=== PATIENT | female | born 1955 | race Caucasian/White ===

== ENCOUNTER → 2016-12-25 | Outpatient (CLI) | payer OTHER ==
[~2016-12-25] MED LIST: ASPI325T39 PO; BUPR100T8 PO; DOXY100C2 PO; FURO20TA PO; IBUP-1050 PO; LOSA1TAB PO; OXYC-57 PO; POTA10CA28 PO
[2016-12-25 17:06] LABS: BLOOD UREA NITROGEN 16 mg/dl (7-18); BUN/CREATININE RATIO 19.5 (10-20); CALCIUM 9.3 mg/dl (8.5-10.1); CARBON DIOXIDE 28 mmol/L (21-32); CHLORIDE 104 mmol/L (98-107); CREATININE 0.84 mg/dl (0.60-1.20); GLUCOSE 164 mg/dl (70-99); POTASSIUM 3.9 mmol/L (3.5-5.1); SODIUM 141 mmol/L (136-145)
[2016-12-26 05:51] LABS: ESTIMATED AVERAGE GLUCOSE 203 mg/dl; HA1C FLAG Normal (Normal)
== END | disposition home or self-care (01) ==
LOC: C.LAB1850 15:54
PROVIDERS: ATTEND Internal Medicine
DX: E11.65 Type 2 diabetes mellitus with hyperglycemia (principal)

== ENCOUNTER → 2017-03-18 | Outpatient (CLI) | payer OTHER ==
[~2017-03-18] VITALS: Ht 157.5 cm; Wt 119.3 kg
[2017-03-18 16:55] VITALS: BP 159/93; PULSE 92; Ht 157.5 cm; Wt 119.3 kg
== END | disposition home or self-care (01) ==
LOC: C.NEUR 14:30
PROVIDERS: ATTEND Internal Medicine Pulmonary Disease
DX: R06.83 Snoring (principal); R53.83 Other fatigue; E66.01 Morbid (severe) obesity due to excess calories

== ENCOUNTER → 2017-04-11 | Outpatient (CLI) | payer OTHER ==
--- NOTE | 2017-04-12 05:58 | SPLIT NIGHT TECHNICIAN REPORT ---
[facility] Split Night Polysomnogram - Dessert Cup Machine Feeder Report Study date: 04/11/2017 Referring Physician: Hany Campos M.D. Name: VANE PROCTOR Dessert Cup Machine Feeder: ISAIAH Palomino. Date of : 1955 Height: 62 years, Height 5' 2" Sex: Female Weight: 263 lbs Age: 62 Neck Circum: 18inches BMI: Medications: 48.1 Losartan HCTZ 100-12.5mg, Hydralazine HCl 50mg, Metformin HCl ER 500mg, Ventolin HFA 108mcg/act, Victoza 18mg/3ml, Vit B12, Vit D Vit D3 Patient History Study started on room air with no ETCO2 monitoring in room 38. 62 yr old female here tonight for a diagnostic psg. She complains of daytime sleepiness and loud snoring. ESS=8/24. Neck circ=18inches. Parameters Monitored NPSG: E1-M2, E2-M1, Fp1-M2, Fp2-M1, F3-M2, F4-M2, F4-M1, C3-M2, C4-M2, C4-M1, O1-M2, O2-M2, O2-M1, T3-M2, T4-M1, P3-M2, P4-M1, CHIN1, CHIN2, HR, EKG, Legs, PFLOW, SNOR, FLOW, CFLOW, Tidal Volume, THOR, ABDO, SpO2, PLTH, CPRESS, ETCO2 Wave, ETCO2, pH SLEEP SUMMARY DATA DIAGNOSTIC TREATMENT Lights Out: 9:52:35 PM 12:45:05 AM Lights On: 12:30:05 AM 5:34:35 AM Total Recording Time (TRT): 157.5 min. 289.5 min. Total Sleep Time (TST): 129.5 min. 238.0 min. NREM Time: 129.5 min. 155.5 min. REM Time: 0.0 min. 82.5 min. Sleep Period Time (SPT): 150.0 min. 272.0 min. Sleep Efficiency (SE): 82 % 82 % Sleep Latency: 7.5 min. 17.5 min. Arousal Index: 7.4 3.0 PAP Treatment Levels: 4, 6, 7, 8, 9, 10 * Optimal Pressure(s) SLEEP STAGING DATA DIAGNOSTIC TREATMENT Duration (min) TST % Duration (min) TST % Stage Wake: 28.0 min. -- 51.5 min. -- WASO: 20.5 min. -- 34.0 min. -- NREM: 129.5 min. 100 % 155.5 min. 65 % Stage N1: 8.5 min. 7 % 12.5 min. 5 % Stage N2: 106.0 min. 82 % 73.0 min. 31 % Stage N3: 15.0 min. 12 % 70.0 min. 29 % REM: 0.0 min. 0 % 82.5 min. 35 % POSITIONAL DATA Event Count Index Event Count Index Supine: N/A N/A N/A N/A Supine NREM: N/A N/A N/A N/A Supine REM: N/A N/A N/A N/A Non-Supine: 75 34.7 6 1.5 Non-Supine NREM: 75 34.7 1 0.4 Non-Supine REM: N/A N/A 5 3.6 AROUSAL SUMMARY DATA: Event Count Index Event Count Index Apnea Arousals: 0 1.9 0 0.3 Hypopnea Arousals: 5 2.3 1 0.3 Snore Arousals: 0 0.0 4 1.0 PLM Arousals: 7 3.2 1 0.3 Non-Specific Arousals: 5 2.3 5 1.3 Total Arousals: 16 7.4 12 3.0 MYOCLONUS (PLM) Event Count Index Event Count Index PLM: 177 82.0 3 0.8 PLM AROUSAL: 7 3.2 1 0.3 PLM W/O AROUSAL 177 82.0 2 0.5 PLM W/RESP EVENT 25 0.0 0 0.0 MYOCLONUS (PLM) Event Count Index Event Count Index LM: 0 11.6 36 9.1 LM AROUSAL: 0 0.0 2 0.5 LM W/O AROUSAL LM W/RESP EVENT LM NON SPECIFIC 159 73.7 35 8.8 HEART RATE DATA DIAGNOSTIC TREATMENT Sleep (bpm): 79 74 REM (bpm): N/A 91 NREM (bpm): 89 92 Tachycardia Count: 0 0 Tachycardia Duration: 0.00 0 Bradycardia Count: 0 0 Bradycardia Duration: 0.00 0 DIAGNOSTIC PORTION TREATMENT PORTION RESPIRATORY DATA Event Count Index Event Count Index AHI: -- 34.7 -- 1.5 RDI: -- 34.7 -- 2 Obstructive Apnea: 4 1.9 0 0.0 Central Apnea: 0 0.0 1 0.3 Mixed Apnea: 0 0.0 0 0.0 Hypopnea: 71 32.9 5 1.3 RERA: 0 0.0 0 0.0 Total Apneas: 4 1.9 1 0.3 RESPIRATORY DATA REM NREM SLEEP REM NREM SLEEP Supine Position: Obstructive Apneas: N/A N/A N/A N/A N/A N/A Central Apneas: N/A N/A N/A N/A N/A N/A Mixed Apneas: N/A N/A N/A N/A N/A N/A Hypopneas: N/A N/A N/A N/A N/A N/A RERA N/A N/A N/A N/A N/A N/A Total Supine Events: N/A N/A N/A N/A N/A N/A Supine AHI: N/A N/A N/A N/A N/A N/A Supine RDI: N/A N/A N/A N/A N/A N/A REM NREM SLEEP REM NREM SLEEP Non-Supine Position: Obstructive Apneas: N/A 4 4 0 0 0 Central Apneas: N/A 0 0 1 0 1 Mixed Apneas: N/A 0 0 0 0 0 Hypopneas: N/A 71 71 4 1 5 RERA N/A 0 0 0 0 0 Total Supine Events: N/A 75 75 5 1 6 Supine AHI: N/A 34.7 34.7 3.6 0.4 1.5 Supine RDI: N/A 34.7 34.7 3.6 0.4 1.5 OXYGEN DESTAURATION DATA: Event Count Index Event Count Index REM Desaturations: N/A N/A 4 2.9 NREM Desaturations: 125 57.9 0 0.0 SNORE DATA DIAGNOSTIC TREATMENT Snore Time: 29.7 1:02:35 AM Snore TST%: 16 5 Snore Arousal Count: 0 4 Snore Arousal Index: 0.0 1.0 Desaturation Event Summary: Minimum %SpO2 Event Count Mean/Min/Max Duration(sec.) Desaturation Index % Time In Bed > 90 118 23.0 / 5.0 / 60.0 23.5 69.8 86 - 90 83 22.0 / 8.0 / 60.0 43.7 26.4 81 - 85 6 26.6 / 9.8 / 44.3 22.8 3.7 76 - 80 0 N/A 0.0 0.1 71 - 75 0 N/A 0.0 0.0 66 - 70 0 N/A 0.0 0.0 61 - 65 0 N/A 0.0 0.0 56 - 60 0 N/A 0.0 0.0 51 - 55 0 N/A 0.0 0.0 < 50 0 N/A 0.0 0.0 OXYGEN SATURATION DATA DIAGNOSTIC TREATMENT SpO2 Mean Sleep: 89 % 92 % SpO2 Mean REM: N/A % 91 % SpO2 Mean NREM: 89 % 92 % SpO2 Minimum Sleep: 80 % 80 % SpO2 Minimum REM: N/A % 80 % SpO2 Minimum NREM: 80 % 87 % Time Below 90% (TST): 65.5 16.9 Time Below 88% (TST): 25.4 11.8 Total REM NREM Awake <50% 0.0 min. 0.0 min. 0.0 min. 0.0 min. 51 - 60% 0.0 min. 0.0 min. 0.0 min. 0.0 min. 61 - 70% 0.0 min. 0.0 min. 0.0 min. 0.0 min. 71 - 80% 0.6 min. 0.2 min. 0.1 min. 0.2 min. 81 - 90% 129.8 min. 16.3 min. 104.2 min. 9.3 min. 91 - 100% 301.1 min. 66.1 min. 180.6 min. 54.4 min. Average 91 91 91 92 Minimum SpO2 79 80 80 79 Desaturation Event Index 18.8 2.9 26.3 8.3 # Desat. Events below 89% 124 4 114 6 Time(%) with Saturation below 89% 13.4 2.9 10.0 0.5 Time(min.) with Saturation below 89% 57.7 12.4 42.9 2.3 Recording Dessert Cup Machine Feeder Comments: Mrs. Proctor slept in the right, left and supine positions. No cardiac arrhythmia noted. Some leg movements noted. No bruxism noted. Snoring was noted and scored as a 5 on a scale of 1 through 5. (0=no snoring, 5=snoring loud enough to be heard through a closed door or down the [address] way) At 12:45am she had met specific Split-Night criteria during the diagnostic portion of this study. CPAP was initiated at +4 CMH2O and up-titrated to an optimal level of +10 CMH2O, which nearly eliminated all respiratory events and snoring. A small Quattro air full facemask by [employer] was used during titration. She awoke to use the restroom one time during the night. She stated andreina she slept a little worse than when at home. The final report will be interpreted and signed by a sleep physician. The completed physician report will then be placed in the patient medical record. Therapy Event: Therapy (cm H20) 0 4 6 7 8 9 10 Total Time at Pressure (min.) 157.5 34.4 6.3 11.2 16.5 23.8 197.3 TST at Pressure (min.) 129.5 8.0 5.7 11.2 16.5 21.8 174.8 # Periods 1 1 1 1 1 1 1 Sleep Onset (min.) 7.5 17.5 0.6 0.0 0.0 0.0 0.0 REM Onset (min.) N/A N/A N/A N/A 6.0 0.0 49.8 Sleep Efficiency % 82 23 91 100 100 91 88 Wakefulness (%) 17.8 76.8 9.0 0.0 0.0 8.4 11.4 Wakefulness (min.) 28.0 26.4 0.6 0.0 0.0 2.0 22.5 NREM 1 (%) 5.4 13.1 39.8 0.0 0.0 10.5 1.5 NREM 1 (min.) 8.5 4.5 2.5 0.0 0.0 2.5 3.0 NREM 2 (%) 67.3 10.2 51.2 100.0 6.3 68.1 19.1 NREM 2 (min.) 106.0 3.5 3.2 11.2 1.0 16.2 37.8 NREM 3 (%) 9.5 0.0 0.0 0.0 30.4 0.0 32.9 NREM 3 (min.) 15.0 0.0 0.0 0.0 5.0 0.0 65.0 REM (%) 0.0 0.0 0.0 0.0 63.3 13.0 35.0 REM (min.) 0.0 0.0 0.0 0.0 10.4 3.1 69.0 # Arousals 16 3 0 0 0 4 5 Arousal Index 7.4 22.5 0.0 0.0 0.0 11.0 1.7 # Snore 1,088 45 46 117 85 99 23 Snore Index 504.1 337.5 483.0 624.4 309.9 272.3 7.9 AHI 34.7 0.0 0.0 0.0 14.6 2.8 0.3 AHI Supine N/A N/A N/A N/A N/A N/A N/A AHI Non-Supine 34.7 0.0 0.0 0.0 14.6 2.8 0.3 NREM AHI 34.7 0.0 0.0 0.0 0.0 0.0 0.6 REM AHI N/A N/A N/A N/A 23.1 19.4 0.0 RDI 34.7 0.0 0.0 0.0 14.6 2.8 0.3 # Obstructive 4 0 0 0 0 0 0 # Central Ap 0 0 0 0 1 0 0 # Mixed 0 0 0 0 0 0 0 # Hypopneas 71 0 0 0 3 1 1 RERAS 0 0 0 0 0 0 0 Total Respiratory Events 75 0 0 0 4 1 1 Time Below SpO2 89.00% (min.) 42.6 0.2 0.0 0.1 9.3 3.1 0.0 Mean NREM SpO2 (%) 89 91 91 91 90 93 93 Mean REM SpO2 (%) N/A N/A N/A N/A 86 83 92 Mean Sleep SpO2 (%) 89 91 91 91 88 91 93 Min NREM SpO2 (%) 80 87 89 88 89 91 91 Min REM SpO2 (%) N/A N/A N/A N/A 81 80 89 Position Supine (min.) 0.0 0.0 0.0 0.0 0.0 0.0 0.0 Position Non-supine (min.) 129.5 8.0 5.7 11.2 16.5 21.8 174.8 LM Index Sleep 93.6 0.0 0.0 10.7 10.9 13.8 10.0 LM Index NREM 93.6 0.0 0.0 10.7 29.8 12.8 11.3 LM Index REM N/A N/A N/A N/A 0.0 19.4 7.8 Mean Heart Rate (bpm) 79 78 77 77 80 78 73 Min Heart Rate (bpm) 68 73 69 71 72 67 61
--- NOTE | 2017-04-16 17:15 | POLYSOMNOGRAPH REPORT ---
CLINICAL DATA: A 62-year-old female referred by myself, Dr. Consuelo Hernandez, and Dr. Eastman with history of snoring, obesity, daytime fatigue and possible sleep apnea. She does awaken herself at times snoring and gasping for air. Her does report loud snoring. This was a split night study. Her [place] Sleepiness Score was 8/24. SLEEP ARCHITECTURE: For the diagnostic portion of the study, total sleep period was 150 minutes. Total sleep time was 129.5 minutes, all non-REM sleep. Sleep latency was 7.5 minutes. Sleep efficiency was 82%. Arousal index was 7.4. Sleep consisted of stage N1 7%, N2 82%, N3 12%. For the treatment portion of the study, total sleep period was 272 minutes. Total sleep time was 238 minutes divided between 155.5 minutes of non-REM sleep and 82.5 minutes of REM sleep. Sleep latency was 17.5 minutes. Sleep efficiency was 82%. Arousal index was 3. Sleep consisted of stage N1 5%, N2 31%, N3 29, REM 35%. AROUSAL DATA: Prior to treatment, 16 arousals were recorded for an index of 7.4 per hour. During treatment, 12 arousals recorded for an index of 3 per hour. PERIODIC LIMB MOVEMENTS DATA: Prior to treatment, 177 limb movements during sleep were noted for an index of 82 per hour. During treatment, 36 limb movements during sleep were noted for an index of 9.1 per hour. EKG: Heart rates ranged from 74-91 beats per minute. No arrhythmias were noted. RESPIRATORY DATA: Prior to treatment, severe sleep apnea was documented. The diagnostic AHI was 34.7. There were 4 obstructive apneic episodes and 71 hypopneic episodes. During treatment, the mean AHI was 1.5. There was 1 central apneic episode and 5 hypopneic episodes recorded. OXIMETRY DATA: Nocturnal hypoxemia was seen prior to treatment. Oxygen chad was 80% during non-REM sleep prior to treatment. Mean saturation for the treatment was 92%. MARKET PRESIDENT'S COMMENTS AND TREATMENT SUMMARY: The patient slept in the right, left, and supine positions. Snoring was severe, rated 5 on a scale of 1-5. At 12:45 a.m., she met split night criteria. We used a small Quattro Air full face mask from [employer]. She was started on CPAP. She was titrated up to an optimal pressure setting of 10 cm water pressure. At final pressure setting, she slept for 174.8 minutes with an AHI of 0.3. IMPRESSION: Severe sleep apnea/hypopnea with diagnostic apnea-hypopnea index of 34.7 prior to treatment with nocturnal hypoxemia corrected with CPAP 10 cm of water pressure, small Quattro Air full face mask from [employer]. RECOMMENDATIONS: The patient will be started on the above noted treatment regimen and seen back in followup within 90 days to document efficacy and compliance. CHRISTY
== END | disposition home or self-care (01) ==
LOC: C.NEUR 21:00
PROVIDERS: ATTEND Internal Medicine Pulmonary Disease
DX: R53.83 Other fatigue (principal); E66.01 Morbid (severe) obesity due to excess calories; R06.83 Snoring; G47.30 Sleep apnea, unspecified

== ENCOUNTER → 2017-04-23 | Outpatient (CLI) | payer OTHER ==
--- NOTE | 2017-04-28 10:15 | MAMMOGRAPHY REPORT ---
BILATERAL DIGITAL SCREENING MAMMOGRAM WITH CAD: 04/23/2017 CLINICAL HISTORY: Routine screening. Patient has no complaints. TECHNIQUE: Current study was also evaluated with a Computer Aided Detection (CAD) system. Bilateral CC and MLO views were obtained. COMPARISON: Comparison is made to exams dated: 03/31/2015 mammogram, 04/01/2016 mammogram, 03/23/2014 [facility], 04/30/2012 mammogram, 01/29/2011 mammogram, and 05/06/2008 mammogra m. BREAST COMPOSITION: There are scattered areas of fibroglandular density in both breasts. FINDINGS: No suspicious masses, calcifications, or areas of architectural distortion are noted in ei ther breast. There has been no significant interval change compared to prior exams. Prominent bilate ral axillary lymph nodes are stable dating back to at least the 2010 exam. Bilateral benign-appearin g calcifications are not significantly changed compared to prior exams. IMPRESSION: ACR BI-RADS CATEGORY 2: BENIGN There is no mammographic evidence of malignancy. A 1 year screening mammogram is recommended. The pa tient will receive written notification of the results. Approximately 10% of breast cancers are not detected with mammography. A negative mammographic report should not delay biopsy if a clinically suggestive mass is present. Demetra Fitch M.D. ah/:04/23/2017 15:32:40 Refrigeration Technician: Pallavi DE LUNA(Brian)(M), [facility] letter sent: Normal 1/2 BI-RADS Code: ACR BI-RADS Category 2: Benign
== END | disposition home or self-care (01) ==
LOC: C.MAMM 15:03
PROVIDERS: ATTEND Internal Medicine
DX: Z12.31 Encounter for screening mammogram for malignant neoplasm of breast (principal)

== ENCOUNTER → 2017-05-14 | Outpatient (CLI) | payer OTHER ==
[2017-05-14 09:55] LABS: HEMATOCRIT 37.7 % (37-47)
[2017-05-14 10:12] LABS: ESTIMATED AVERAGE GLUCOSE 137 mg/dl; HA1C FLAG Normal (Normal)
[2017-05-14 10:21] LABS: CALCIUM 9.3 mg/dl (8.5-10.1)
[2017-05-14 10:30] LABS: ALKALINE PHOSPHATASE 73 U/L (45-117); ALT/SGPT 19 U/L (12-78); AST/SGOT 12 U/L (15-37); BLOOD UREA NITROGEN 20 mg/dl (7-18); BUN/CREATININE RATIO 20.6 (10-20); CARBON DIOXIDE 26 mmol/L (21-32); CHLORIDE 105 mmol/L (98-107); CHOLESTEROL 184 mg/dl (0-200); CHOLESTEROL/HDL RATIO 3.6; CREATININE 0.97 mg/dl (0.60-1.20); GLUCOSE 132 mg/dl (70-99); HDL CHOLESTEROL 51 mg/dl; LDL CHOLESTEROL CALCULATED 96 mg/dl; POTASSIUM 3.7 mmol/L (3.5-5.1); SODIUM 142 mmol/L (136-145); TRIGLYCERIDES 187 mg/dl (0-150); VERY LOW DENSITY LIPOPROT CALC 37 mg/dl
[2017-05-14 10:31] LABS: HEPATITIS B AB NEG
== END | disposition home or self-care (01) ==
LOC: C.LAB1850 09:08
PROVIDERS: ATTEND Internal Medicine Endocrinology, Diabetes & Metabolism
DX: E11.65 Type 2 diabetes mellitus with hyperglycemia (principal)

== ENCOUNTER → 2017-12-09 | Outpatient (CLI) | payer OTHER ==
--- NOTE | 2017-12-09 12:51 | DIAGNOSTIC IMAGING REPORT ---
PELVIS 1 OR 2 VIEW ROUTINE CLINICAL HISTORY: Pelvic pain status post trauma COMPARISON STUDY: 03/03/2013 FINDINGS: There are advanced degenerative changes present within the visualized portions of the lower lumbar spine. No acute pelvic fractures are visualized. Corticated densities are again visualized adjacent to each greater trochanter. There is no SI joint diastases. There is no symphysis diastases. There is a nonspecific 12 mm left-sided pelvic calcification possibly representing calcification within a degenerating fibroid. IMPRESSION: No acute fractures or dislocations identified. Electronically signed by: Marlo Stevens M.D. 12/09/2017 12:49 PM Dictated Date/Time: 12/09/2017 12:48 PM
--- NOTE | 2017-12-09 12:53 | DIAGNOSTIC IMAGING REPORT ---
RIGHT RIBS INCLUDING PA ERECT CHEST CLINICAL HISTORY: Right-sided rib pain status post trauma COMPARISON STUDY: No previous studies for comparison. FINDINGS: The erect chest reveals no pneumothorax. There is no focal pulmonary consolidation. Degenerative changes are present within the shoulders and AC joints. There is probable right-sided calcific tendinitis. Deformities of the right sixth and seventh ribs are felt to be old. No acute fractures are visualized. IMPRESSION: 1. Minor deformities of the right sixth and seventh ribs which are felt to be old. 2. No acute fractures. No evidence of pneumothorax. Electronically signed by: Marlo Stevens M.D. 12/09/2017 12:52 PM Dictated Date/Time: 12/09/2017 12:50 PM
--- NOTE | 2017-12-09 12:55 | DIAGNOSTIC IMAGING REPORT ---
THORACIC SPINE 3 VIEWS ROUTINE, L-SPINE MIN 4 VIEWS ROUTINE HISTORY: 62 years-old Female THORACIC BACK PAIN acute back pain status post fall COMPARISON: Chest radiographs 02/23/2016 TECHNIQUE: 3 views of the thoracic spine and 5 views of the lumbar spine FINDINGS: THORACIC: No acute fracture or subluxation. Multilevel anterior endplate bridging osteophytosis is noted along with multilevel intervertebral disc space narrowing. Soft tissues and imaged lung whaley appear unremarkable. LUMBAR: Mild convex right curvature of the lumbar spine. No acute fracture or subluxation identified. Advanced multilevel intervertebral disc space narrowing with facet arthropathy and endplate spurring. There is relative preservation of the L2-L3 disc space. No spondylolysis or spondylolisthesis. Surgical clips are seen within the right upper abdomen suggesting prior cholecystectomy. Moderate stool wire above the cecum and ascending colon. IMPRESSION: 1. No acute fracture or subluxation of the thoracic or lumbar spine. 2. Multilevel discogenic degenerative changes, endplate spurring and facet arthropathy as above, greatest within the lumbar spine. The above report was generated using voice recognition software. It may contain grammatical, syntax or spelling errors. Electronically signed by: Benigno Dobson M.D. 12/09/2017 12:53 PM Dictated Date/Time: 12/09/2017 12:50 PM
== END | disposition home or self-care (01) ==
LOC: C.RAD1850 12:09
PROVIDERS: ATTEND Internal Medicine
DX: M54.6 Pain in thoracic spine (principal); W19.XXXA Unspecified fall, initial encounter; R07.81 Pleurodynia; M51.36 Other intervertebral disc degeneration, lumbar region; M12.88 Other specific arthropathies, not elsewhere classified, other specified site; M25.78 Osteophyte, vertebrae

== ENCOUNTER → 2017-12-09 | Outpatient (CLI) | payer OTHER ==
[2017-12-09 10:03] LABS: ALBUMIN 3.2 gm/dl (3.4-5.0); ALT/SGPT 26 U/L (12-78); BLOOD UREA NITROGEN 21 mg/dl (7-18); CALCIUM 9.5 mg/dl (8.5-10.1); CARBON DIOXIDE 27 mmol/L (21-32); CREATININE 0.88 mg/dl (0.60-1.20); GLUCOSE 176 mg/dl (70-99); POTASSIUM 3.8 mmol/L (3.5-5.1); SODIUM 139 mmol/L (136-145)
[2017-12-09 10:13] LABS: ALKALINE PHOSPHATASE 83 U/L (45-117); AST/SGOT 19 U/L (15-37)
== END | disposition home or self-care (01) ==
LOC: C.LAB1850 08:01
PROVIDERS: ATTEND Internal Medicine
DX: E11.65 Type 2 diabetes mellitus with hyperglycemia (principal); E78.5 Hyperlipidemia, unspecified; E55.9 Vitamin D deficiency, unspecified; Z11.59 Encounter for screening for other viral diseases; R82.90 Unspecified abnormal findings in urine

== ENCOUNTER → 2017-12-19 | Outpatient (CLI) | payer OTHER | END | disposition home or self-care (01) | LOC: C.PAPS 11:45 | PROVIDERS: ATTEND Physician Assistant | DX: Z01.419 Encounter for gynecological examination (general) (routine) without abnormal findings (principal) ==

== ENCOUNTER → 2018-03-10 | Outpatient (CLI) | payer OTHER ==
--- NOTE | 2018-03-10 07:53 | DIAGNOSTIC IMAGING REPORT ---
SOFT TISS HEAD/NECK-THYROID CLINICAL HISTORY: 63 years-old Female presenting with M54.2 Neck [id number]. TECHNIQUE: Real-time grayscale and color Doppler ultrasound imaging of the thyroid and base of the neck was performed. COMPARISON: None. FINDINGS: Right lobe: Heterogeneous echotexture secondary to the presence of multiple nodules. The right lobe of the thyroid measures 5.2 x 2.1 x 1.9 cm. No parenchymal hyperemia. Index nodule(s) enumerated below: 1. Upper pole well-defined hypoechoic 1.1 x 0.7 x 0.9 cm nodule (intermediate suspicion). 2. Lower pole well-defined heterogeneously hyperechoic to isoechoic 2.1 x 1.7 x 2.0 cm nodule (low suspicion). Left lobe: Heterogeneous echotexture secondary to the presence of multiple nodules. The left lobe of the thyroid measures 4.9 x 1.6 x 1.5 cm. No parenchymal hyperemia. Index nodule(s) enumerated below: 1. Lower pole heterogeneously isoechoic lobular fairly well-defined 1.5 x 1.1 x 1.1 cm nodule (low suspicion). Isthmus: The isthmus measures 5 mm in thickness. No parenchymal hyperemia. No nodules. Other: Several prominent left cervical lymph nodes noted. These measure 1.4 x 1.7 x 0.8 cm and 1.5 x 1.7 x 0.8 cm. Numerous additional smaller lymph nodes surrounding these are noted. Normal fatty sami are not definitively visualized. IMPRESSION: 1. Intermediate suspicion upper pole right thyroid lobe nodule. This meets [place] thyroid Association criteria for fine-needle biopsy if this has not already been performed. 2. Multinodular thyroid. 3. Prominent borderline suspicious lymph nodes in the left cervical region. These could be reactive. Reassessment at the time of thyroid FNA recommended. Electronically signed by: Joshua Thacker M.D. 03/10/2018 7:52 AM Dictated Date/Time: 03/10/2018 7:47 AM
== END | disposition home or self-care (01) ==
LOC: C.ULTR 06:52
PROVIDERS: ATTEND Internal Medicine Endocrinology, Diabetes & Metabolism
DX: M54.2 Cervicalgia (principal); E04.2 Nontoxic multinodular goiter

== ENCOUNTER → 2018-03-23 | Outpatient (CLI) | payer OTHER ==
--- NOTE | 2018-03-23 13:03 | DIAGNOSTIC IMAGING REPORT ---
ULTRASOUND-GUIDED FINE-NEEDLE ASPIRATION THYROID CLINICAL HISTORY: Left thyroid nodule. COMPARISON STUDY: Thyroid ultrasound 03/10/2018. PROCEDURE: The risks, benefits, and alternatives to the procedure were discussed with the patient. Written informed consent was obtained. The patient was placed supine in ultrasound, and the 1.5 cm nodule in the left lobe of the thyroid was localized by ultrasound and selected for fine needle aspiration. The left neck was prepped and draped in the usual sterile fashion. The nodule was aspirated under ultrasound guidance with 2 passes utilizing 25-gauge needles. Specimens were reviewed by the pathologist in real-time and deemed adequate for diagnosis. The patient tolerated the procedure well and left the department in satisfactory condition. IMPRESSION: Completed fine-needle aspiration of a left thyroid nodule as above. The above report was generated using voice recognition software. It may contain grammatical, syntax or spelling errors. Electronically signed by: Benigno Dobson M.D. 03/23/2018 1:02 PM Dictated Date/Time: 03/23/2018 12:57 PM
--- NOTE | 2018-03-23 13:04 | DIAGNOSTIC IMAGING REPORT ---
ULTRASOUND-GUIDED FINE-NEEDLE ASPIRATION THYROID CLINICAL HISTORY: Right thyroid nodule. COMPARISON STUDY: Thyroid ultrasound 03/10/2018. PROCEDURE: The risks, benefits, and alternatives to the procedure were discussed with the patient. Written informed consent was obtained. The patient was placed supine in ultrasound, and the 1.7 cm nodule in the right lobe of the thyroid was localized by ultrasound and selected for fine needle aspiration. The right neck was prepped and draped in the usual sterile fashion. The nodule was aspirated under ultrasound guidance with 3 passes utilizing 25-gauge needles. Specimens were reviewed by the pathologist in real-time and deemed adequate for diagnosis. The patient tolerated the procedure well and left the department in satisfactory condition. IMPRESSION: Completed fine-needle aspiration of a right thyroid nodule as above. The above report was generated using voice recognition software. It may contain grammatical, syntax or spelling errors. Electronically signed by: Benigno Dobson M.D. 03/23/2018 1:02 PM Dictated Date/Time: 03/23/2018 1:00 PM
== END | disposition home or self-care (01) ==
LOC: C.ULTR 10:34
PROVIDERS: ATTEND Internal Medicine Endocrinology, Diabetes & Metabolism
DX: E04.2 Nontoxic multinodular goiter (principal)

== ENCOUNTER 2019-11-29 09:49 | Inpatient (IN) ==
[2019-11-29] MEDS ORDERED: HYDROmorphone INJ 0.5 MG/0.5 ML SYR IV STA (10:32)
[2019-11-29] MEDS ORDERED: KETOROLAC 30 MG/ML VIAL IV STA (10:32)
[2019-11-29] MEDS ORDERED: methylPREDNISolone 60 MG in SYRINGE 1 ML IV STA (10:34)
[2019-11-29] MEDS ORDERED: ALBUT/IPRATROP 3MG/0.5MG NEB 3 ML VIAL NEB ONE (10:34)
[2019-11-29] MEDS ORDERED: LIDOCAINE 5% 1 PATCH TD STA (10:34)
[2019-11-29] MEDS ORDERED: SODIUM CHLORIDE 0.9% 500 ML IV SCH (10:45)
[2019-11-29 11:12] LABS: Basophils # (auto) 0.01 K/uL (0-0.2); Hemoglobin 11.3 g/dL (12.0-16.0); Immature Granulocytes # (auto) 0.04 K/uL (0.00-0.02); Immature Granulocytes % (auto) 0.2 %; Lymphocytes # (auto) 3.52 K/uL (1.2-3.4); Lymphocytes % (auto) 16.1 %; Mean Corpuscular Hemoglobin 27.4 pg (25-34); Mean Corpuscular Hgb Conc 32.3 g/dL (32-36); Mean Platelet Volume 11.1 fL (7.4-10.4); Monocytes # (auto) 0.88 K/uL (0.11-0.59); Neutrophils # (auto) 17.36 K/uL (1.4-6.5); Neutrophils % (auto) 79.7 %; Platelet Count 165 K/uL (130-400); RDW Coefficient of Variation 16.1 % (11.5-14.5); RDW Standard Deviation 50.1 fL (36.4-46.3); Red Blood Count 4.12 M/uL (4.2-5.4); White Blood Count 21.81 K/uL (4.8-10.8)
[2019-11-29 11:16] LABS: iSTAT Creatinine 1.7 mg/dl (0.6-1.3); iSTAT Hemoglobin 11.9 g/dl (12.0-16.0); iSTAT Ionized Calcium 1.11 mmol/l (1.12-1.32); iSTAT Potassium 3.7 mEq/L (3.3-5.0)
[2019-11-29 11:27] LABS: Alanine Aminotransferase 16 U/L (12-78); Albumin Level 2.8 gm/dl (3.4-5.0); Aspartate Aminotransferase 18 U/L (15-37); Blood Urea Nitrogen 24 mg/dl (7-18); Calcium 9.7 mg/dl (8.5-10.1); Carbon Dioxide 27 mmol/L (21-32); Chloride 97 mmol/L (98-107); Creatinine Clr Calc Pharmacy 38.1 ml/min; Est GFR (Non-African American) 31.1; Glucose 143 mg/dl (70-99); Lipase 115 U/L (73-393); Potassium 3.5 mmol/L (3.5-5.1); Sodium 131 mmol/L (136-145)
[2019-11-29] MEDS ORDERED: methylPREDNISolone 125 MG/2 ML VIAL ONE (11:29)
[2019-11-29 11:32] LABS: Albumin Globulin Ratio 0.6 (0.9-2); Alkaline Phosphatase 88 U/L (45-117); Creatine Kinase 100 U/L (26-192); Creatine Kinase MB < 1.0 ng/ml (0.5-3.6); Globulin 4.8 gm/dl (2.5-4.0); Total Protein 7.6 gm/dl (6.4-8.2); Troponin I < 0.015 ng/ml (0-0.045)
[2019-11-29] MEDS ORDERED: SODIUM CHLORIDE 0.9% 1000ML 500 ML IV ONE (11:42)
[2019-11-29] MEDS ORDERED: OPTIRAY 320 125ml IV PRN (12:35)
[2019-11-29] MEDS ORDERED: LEVOFLOXACIN/D5W 750 MG/150 ML BAG IV STA (12:49)
[2019-11-29] MEDS ORDERED: PIPERACILL/TAZOBAC CONSULT ACTIVE PRN (12:49)
[2019-11-29] MEDS ORDERED: PIPERACILLIN/TAZOBACTAM 4.5 GM/120 ML BAG IV ONE (12:49)
--- NOTE | 2019-11-29 12:54 | CT Scan Report ---
CHEST CTA for PULMONARY ARTERIES CT DOSE: 534.63 mGycm HISTORY: Atypical Chest Pain, eval for PE TECHNIQUE: Multiaxial CT images of the chest were performed following the intravenous administration of contrast to evaluate the pulmonary arteries. Maximal intensity projection images were also obtaine d. A dose lowering technique was utilized adhering to the principles of ALARA. COMPARISON STUDY: Chest CTA 06/04/2019. FINDINGS: There are few thyroid nodules with the largest on the right measuring 2 cm. Normal caliber thoracic aorta with no evidence for dissection. Trace left pleural effusion. The heart is borderline enlarged. No filling defects within the pulmonary arteries to suggest pulmonary embolus. Limited view s of the upper abdomen demonstrate a normal liver and spleen. No change in the axillary, mediastinal, left hilar lymphadenopathy. Dominant right axillary lymph node measures 2.5 x 1.4 cm. This is nonspe cific but raise the possibility of a lymphoproliferative disorder. Normal esophagus. No suspicious ly tic are blastic osseous lesions. Interval development of dense consolidation involving the majority o f the left lower lobe. There are associated air bronchograms. Therefore, this favors a pneumonia. No pneumothorax. The central airways are patent. The right lung is clear. IMPRESSION: 1. No evidence for pulmonary embolus. 2. Dense consolidation within the left lower lobe which is new from the prior study. This favors a pn eumonia. Recommend one month chest x-ray follow-up to ensure complete resolution and exclude the less likely possibility of underlying pulmonary lesion. 3. No significant change in the axillary, mediastinal, left hilar lymphadenopathy. This is nonspecifi c but could represent a lymphoproliferative disorder. 4. Trace left pleural effusion. 5. Multiple thyroid nodules with the largest on the right measuring 2 cm. These were described on a p rior thyroid ultrasound. ACT 112: Negative or not required by law. Electronically signed by: Isaiah Romero M.D. 11/29/2019 12:52 PM
--- NOTE | 2019-11-29 15:00 | Emergency Department Note ---
Entered by Jamal Dias acting as a scribe for History of Present Illness General Chief complaint: Cough Stated complaint: COUGHING,BLOODY MUCUS,RT CHEST PAIN Time Seen by Provider: 11/29/19 10:07 Source: patient History of Present Illness Provider complaint: Cough Onset (ago): day(s) 4 Location: chest Severity: similar to prior episodes Pain Consistency: + constant and + intermittent Maximum Pain Intensity: 3 Current Pain Intensity: 3 Quality: + stabbing Associated symptoms: + cough, + fever/chills and + other (Hemoptysis, ) The patient is a 64 year old female who presents to the Emergency Room with c omplaints of a constant cough that started about a week ago and became worse over the past couple of days. The patient states that her cough was initially dry but now she is coughing up mucous with a red tinge. She adds that as the days progressed, the blood in her sputum was more prominent. The patient also endorses a left sided chest pain that she explained is located just under her left breast. The patient rates the pain as as a 3/10 and notes it is a stabbing sensation. The patient adds that she was seen at her PCP's office and given Krista Diaz. She also has been taking Tylenol for intermittent fevers and chills. The patient does have a history of pneumonia. Home Medications Home Medications Medication Instructions Recorded Confirmed Type atorvastatin 10 mg PO DAILY 01/24/19 11/29/19 History cholecalciferol (vitamin D3) 2,000 units PO 6XWK 01/24/19 11/29/19 History [Vitamin D3] metformin 1,000 mg PO AMPM 01/24/19 11/29/19 History losartan [Cozaar] 100 mg PO DAILY 06/04/19 11/29/19 History triamterene-hydrochlorothiazid 1 cap PO DAILY 06/04/19 11/29/19 History [Dyazide] sodium,potassium,mag sulfates 17.5 177 ml PO DAILY #354 ml 08/31/19 11/29/19 Rx gram-3.13 gram-1.6 gram oral soln erythromycin 5 mg/gram (0.5 %) eye 1.25 cm OP BID #3.5 gm 09/18/19 11/29/19 Rx ointment hydralazine 50 mg tablet 50 mg PO BID #60 tab 10/29/19 01/06/20 Rx ibuprofen 200 mg tablet 400 mg PO BID PRN tab 09/21/19 11/29/19 History tobramycin 0.3 % eye drops 1 drops OP Q4H #5 ml 09/21/19 11/29/19 Rx Trulicity 1.5 mg/0.5 mL 1.5 mg SUBCUT WK #2 ml NS 10/08/19 11/29/19 Rx subcutaneous pen injector ergocalciferol (vitamin D2) 50,000 50,000 unit PO WK #13 cap 10/26/19 11/29/19 Rx unit capsule benzonatate 100 mg capsule 100 mg PO TID PRN #30 cap 11/06/19 11/29/19 Rx cyclobenzaprine 10 mg PO TID PRN #15 tab 11/23/19 11/29/19 Rx oxycodone-acetaminophen [Percocet] 1 tab PO Q4H PRN #15 tab 11/23/19 11/29/19 Rx peg 3350-electrolytes 236 240 ml PO .COMPLEX #4000 ml 11/23/19 11/29/19 Rx gram-22.74 gram-6.74 gram-5.86 gram solution Allergies Allergy/AdvReac Type Severity Reaction Status Date / Time lisinopril AdvReac Unknown cough Verified 11/06/19 11:33 pregabalin AdvReac Unknown sadness, Verified 11/06/19 11:33 crying Past Med/Surg History Medical History Cellulitis (Resolved) H/O pityriasis rosea HTN (hypertension) 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) Joint pain, knee (Acute) Leg edema, right (Acute) Leg swelling (Acute) Low back pain (Acute) Morbid obesity (Acute) Multiple thyroid nodules (Acute) Not immune to hepatitis B virus (Acute) 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) Rosacea (Acute) Snoring (Acute) Systolic murmur (Acute) Thoracic back pain (Acute) Urinary frequency (Acute) Vitamin D deficiency disease (Acute) Surgical History H/O hernia repair (Acute 03/03/13) History of bilateral knee replacement Hx of section Hx of cholecystectomy 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 and A total of 10 systems reviewed and were otherwise negative Physical Exam Vital Signs Vital Signs - 24 hr 11/29/19 09:55 11/29/19 10:32 11/29/19 11:06 Temperature 37.7 C H Temperature Source Oral Pulse Rate 97 H Pulse Rate [Right Apical] 67 Pulse Rate from SpO2 Sensor Pulse Rhythm Regular Pulse Strength Normal Respiratory Rate 20 20 Respiratory Effort / Characteristics Non-Labored Spontaneous Spontaneous Respiratory Depth Normal Respiratory Pattern Regular Blood Pressure 164/88 H Blood Pressure Mean 113 Blood Pressure Position Sitting Pulse Oximetry 92 98 91 Oxygen Delivery Method Room Air Room Air Room Air Fraction of Inspired Oxygen Sepsis Recent Fever Within 48 Hours No Sepsis Action Taken by Nursing No Action Required Oxygen Flow Rate - Titration Pulse Oximetry Post Tiitration 11/29/19 11:32 11/29/19 11:39 11/29/19 11:45 Temperature Temperature Source Pulse Rate 106 H 107 H 107 H Pulse Rate [Right Apical] Pulse Rate from SpO2 Sensor 107 H 107 H 107 H Pulse Rhythm Pulse Strength Respiratory Rate 19 18 27 H Respiratory Effort / Characteristics Respiratory Depth Respiratory Pattern Blood Pressure 177/91 H Blood Pressure Mean 103 Blood Pressure Position Pulse Oximetry 98 99 99 Oxygen Delivery Method Fraction of Inspired Oxygen Sepsis Recent Fever Within 48 Hours Sepsis Action Taken by Nursing Oxygen Flow Rate - Titration Pulse Oximetry Post Tiitration 11/29/19 12:00 11/29/19 12:01 11/29/19 12:02 Temperature Temperature Source Pulse Rate 108 H 109 H 108 H Pulse Rate [Right Apical] Pulse Rate from SpO2 Sensor 109 H 109 H 108 H Pulse Rhythm Pulse Strength Respiratory Rate 31 H 28 H 26 H Respiratory Effort / Characteristics Respiratory Depth Respiratory Pattern Blood Pressure 130/71 Blood Pressure Mean 104 Blood Pressure Position Pulse Oximetry 99 100 100 Oxygen Delivery Method Fraction of Inspired Oxygen Sepsis Recent Fever Within 48 Hours Sepsis Action Taken by Nursing Oxygen Flow Rate - Titration Pulse Oximetry Post Tiitration 11/29/19 12:42 11/29/19 12:45 11/29/19 13:00 Temperature Temperature Source Pulse Rate 102 H 102 H 97 H Pulse Rate [Right Apical] Pulse Rate from SpO2 Sensor Pulse Rhythm Pulse Strength Respiratory Rate 26 H 21 20 Respiratory Effort / Characteristics Respiratory Depth Respiratory Pattern Blood Pressure Blood Pressure Mean Blood Pressure Position Pulse Oximetry Oxygen Delivery Method Fraction of Inspired Oxygen Sepsis Recent Fever Within 48 Hours Sepsis Action Taken by Nursing Oxygen Flow Rate - Titration Pulse Oximetry Post Tiitration 11/29/19 13:14 11/29/19 13:15 11/29/19 13:16 Temperature Temperature Source Pulse Rate 96 H 97 H Pulse Rate [Right Apical] Pulse Rate from SpO2 Sensor 97 H 97 H Pulse Rhythm Pulse Strength Respiratory Rate 24 21 Respiratory Effort / Characteristics Respiratory Depth Respiratory Pattern Blood Pressure 137/68 Blood Pressure Mean 90 Blood Pressure Position Pulse Oximetry 88 L 94 Oxygen Delivery Method Room Air Fraction of Inspired Oxygen 88 Sepsis Recent Fever Within 48 Hours Sepsis Action Taken by Nursing Oxygen Flow Rate - Titration 2 Pulse Oximetry Post Tiitration 91 GENERAL: Awake, alert, well-appearing, in no distress HENT: Normocephalic, atraumatic. Oropharynx unremarkable. EYES: Normal conjunctiva. Sclera non-icteric. NECK: Supple. No nuchal rigidity. FROM. No masses. RESPIRATORY: Bilateral wheezing present. No rales. Normal respiratory effort. CARDIAC: Normal rate. Normal rhythm. No murmurs. No rubs. Extremities warm and well perfused. Pulses equal. No JVD. GI: Soft, non-distended. No tenderness to palpation. No rebound or guarding. No masses. RECTAL: Deferred. MUSCULOSKELETAL: Atraumatic. Chest examination reveals reproducible chest tenderness. The back is symmetrical on inspection without obvious abnormality. There is no CVA tenderness to palpation. No joint edema. LOWER EXTREMITIES: Calves are equal size bilaterally and non-tender. No edema. No discoloration. NEURO: Normal sensorium. No sensory or motor deficits noted. Course Course 1013: Past medical records reviewed. The patient was evaluated in room B07, and a complete history and physical examination were performed. 1204: I reevaluated the patient and she is resting in bed. I updated her with test results obtained thus far. 1302: The patient's CURB score is 2. 1318: I spoke to Dr. Aguilar [facility] Hospitalist about the patient's case. She agreed to accept the patient for further evaluation. Consultations Consultation #1: I spoke to Dr. Aguilar [facility] Hospitalist about the patient's case. She agreed to accept the patient for further evaluation. Time: 13:18 Administered Medications Ioversol (Optiray 320 125ml) 99 ml IV ONCE PRN PRN Reason: Interaction Checking Stop: 12/03/19 12:34 Last Admin: 11/29/19 12:36 Dose: 99 ml Documented by: [id number] Discontinued Medications Albuterol (Duoneb) 12 ml NEB ONE ONE Stop: 11/29/19 10:35 Last Admin: 11/29/19 11:04 Dose: 12 ml Documented by: [id number] Hydromorphone HCl (Dilaudid) 0.5 mg IV NOW STA Stop: 11/29/19 10:33 Last Admin: 11/29/19 11:34 Dose: Not Given Documented by: [id number] Sodium Chloride (Nss) 500 mls @ 999 mls/hr IV .Q31M MIMI Stop: 11/29/19 11:15 Last Infusion: 11/29/19 11:59 Dose: 0 mls/hr Documented by: [id number] Admin: 11/29/19 11:34 Dose: 999 mls/hr Documented by: [id number] Methylprednisolone 60 mg/ (Syringe) 1.96 mls @ 1.5 mls/min IV NOW STA Stop: 11/29/19 10:35 Last Admin: 11/29/19 11:34 Dose: Not Given Documented by: [id number] Sodium Chloride (Nss 1000ml) 500 mls @ 999 mls/hr IV .Q31M ONE Stop: 11/29/19 12:12 Last Infusion: 11/29/19 12:40 Dose: 0 mls/hr Documented by: [id number] Admin: 11/29/19 12:00 Dose: 999 mls/hr Documented by: [id number] Piperacillin Sod/Tazobactam Sod (Zosyn) 4.5 gm in 120 mls @ 240 mls/hr IV NOW ONE Stop: 11/29/19 13:18 Last Infusion: 11/29/19 14:17 Dose: 0 mls/hr Documented by: [id number] Admin: 11/29/19 13:47 Dose: 240 mls/hr Documented by: [id number] Levofloxacin/Dextrose (Levaquin/D5w) 750 mg in 150 mls @ 100 mls/hr IV NOW STA Stop: 11/29/19 14:18 Last Admin: 11/29/19 13:47 Dose: 100 mls/hr Documented by: [id number] Ketorolac Tromethamine (Toradol) 30 mg IV NOW STA Stop: 11/29/19 10:33 Last Admin: 11/29/19 11:34 Dose: 30 mg Documented by: [id number] Lidocaine (Lidoderm 5%) 1 patch TD NOW STA Stop: 11/29/19 10:35 Last Admin: 11/29/19 11:33 Dose: 1 patch Documented by: [id number] Methylprednisolone (Solumedrol) Confirm Administered Dose 125 mg .ROUTE .STK-MED ONE Stop: 11/29/19 11:30 Last Admin: 11/29/19 11:33 Dose: 60 mg Documented by: [id number] Medical Decision Making Differential Diagnosis Differential: Infectious, Reactive Airway Disease, Pneumonia, Pneumothorax, COPD, CHF, ACS, Pulmonary Embolism, MSK, GI, Dissection, amongst other etiologies entertained. Medical Records Attestation: I reviewed the patient's medical records. Home Medications Current Medication List: was personally reviewed by me Laboratory Data Attestation: I reviewed the patient's lab results. Result diagrams: 11/29/19 10:55 11/29/19 10:55 Lab Results 11/29/19 11/29/19 11/29/19 Range/Units 10:55 10:55 11:00 WBC 21.81 H (4.8-10.8) K/uL RBC 4.12 L (4.2-5.4) M/uL Hgb 11.3 L (12.0-16.0) g/dL POC Hgb 11.9 L (12.0-16.0) g/dl Hct 35.0 L (37-47) % POC Hct 35 L (37-47) % MCV 85.0 (80-100) fL MCH 27.4 (25-34) pg MCHC 32.3 (32-36) g/dL RDW Std Deviation 50.1 H (36.4-46.3) fL RDW Coeff of Dolores 16.1 H (11.5-14.5) % Plt Count 165 (130-400) K/uL MPV 11.1 H (7.4-10.4) fL Immature Gran % (Auto) 0.2 % Neut % (Auto) 79.7 % Lymph % (Auto) 16.1 % [place] % (Auto) 4.0 % Eos % (Auto) 0.0 % Baso % (Auto) 0.0 % Immature Gran # (Auto) 0.04 H (0.00-0.02) K/uL Neut # (Auto) 17.36 H (1.4-6.5) K/uL Lymph # (Auto) 3.52 H (1.2-3.4) K/uL [place] # (Auto) 0.88 H (0.11-0.59) K/uL Eos # (Auto) 0.00 (0-0.5) K/uL Baso # (Auto) 0.01 (0-0.2) K/uL POC Sodium 132 L (135-144) mEq/L Sodium 131 L (136-145) mmol/L POC Potassium 3.7 (3.3-5.0) mEq/L Potassium 3.5 (3.5-5.1) mmol/L POC Chloride 97 L (101-112) mEq/L Chloride 97 L (98-107) mmol/L Carbon Dioxide 27 (21-32) mmol/L POC Total CO2 26 (24-31) mEq/l Anion Gap 7.0 (3-11) POC Anion Gap 14.0 L (16-25) mmol/L POC BUN 23 H (7-18) mg/dl BUN 24 H (7-18) mg/dl Creatinine 1.71 H (0.6-1.2) mg/dl POC Creatinine 1.7 H (0.6-1.3) mg/dl Est Cr Clr Drug Dosing 38.1 ml/min Est GFR ( Amer) 36.0 Est GFR (Non-Af Amer) 31.1 BUN/Creatinine Ratio 14.0 (10-20) Glucose 143 H (70-99) mg/dl POC Glucose (other) 144 H (70-99) mg/dl Calcium 9.7 (8.5-10.1) mg/dl POC Ioniz Calcium Wilfredo 1.11 L (1.12-1.32) mmol/l Total Bilirubin 1.0 (0.2-1) mg/dl AST 18 (15-37) U/L ALT 16 (12-78) U/L Alkaline Phosphatase 88 (45-117) U/L Total Creatine Kinase 100 (26-192) U/L CK-MB (CK-2) < 1.0 (0.5-3.6) ng/ml CK/CKMB % Calc TNP Troponin I < 0.015 (0-0.045) ng/ml Total Protein 7.6 (6.4-8.2) gm/dl Albumin 2.8 L (3.4-5.0) gm/dl Globulin 4.8 H (2.5-4.0) gm/dl Albumin/Globulin Ratio 0.6 L (0.9-2) Lipase 115 (73-393) U/L Influenza Type A Ag (Neg) Influenza Type B Ag (Neg) 11/29/19 Range/Units 12:10 WBC (4.8-10.8) K/uL RBC (4.2-5.4) M/uL Hgb (12.0-16.0) g/dL POC Hgb (12.0-16.0) g/dl Hct (37-47) % POC Hct (37-47) % MCV (80-100) fL MCH (25-34) pg MCHC (32-36) g/dL RDW Std Deviation (36.4-46.3) fL RDW Coeff of Dolores (11.5-14.5) % Plt Count (130-400) K/uL MPV (7.4-10.4) fL Immature Gran % (Auto) % Neut % (Auto) % Lymph % (Auto) % [place] % (Auto) % Eos % (Auto) % Baso % (Auto) % Immature Gran # (Auto) (0.00-0.02) K/uL Neut # (Auto) (1.4-6.5) K/uL Lymph # (Auto) (1.2-3.4) K/uL [place] # (Auto) (0.11-0.59) K/uL Eos # (Auto) (0-0.5) K/uL Baso # (Auto) (0-0.2) K/uL POC Sodium (135-144) mEq/L Sodium (136-145) mmol/L POC Potassium (3.3-5.0) mEq/L Potassium (3.5-5.1) mmol/L POC Chloride (101-112) mEq/L Chloride (98-107) mmol/L Carbon Dioxide (21-32) mmol/L POC Total CO2 (24-31) mEq/l Anion Gap (3-11) POC Anion Gap (16-25) mmol/L POC BUN (7-18) mg/dl BUN (7-18) mg/dl Creatinine (0.6-1.2) mg/dl POC Creatinine (0.6-1.3) mg/dl Est Cr Clr Drug Dosing ml/min Est GFR ( Amer) Est GFR (Non-Af Amer) BUN/Creatinine Ratio (10-20) Glucose (70-99) mg/dl POC Glucose (other) (70-99) mg/dl Calcium (8.5-10.1) mg/dl POC Ioniz Calcium Wilfredo (1.12-1.32) mmol/l Total Bilirubin (0.2-1) mg/dl AST (15-37) U/L ALT (12-78) U/L Alkaline Phosphatase (45-117) U/L Total Creatine Kinase (26-192) U/L CK-MB (CK-2) (0.5-3.6) ng/ml CK/CKMB % Calc Troponin I (0-0.045) ng/ml Total Protein (6.4-8.2) gm/dl Albumin (3.4-5.0) gm/dl Globulin (2.5-4.0) gm/dl Albumin/Globulin Ratio (0.9-2) Lipase (73-393) U/L Influenza Type A Ag Neg for Influ A (Neg) Influenza Type B Ag Neg for Influ B (Neg) Imaging Data Radiologist's Impression: Radiology results as stated below per my review and the radiologist's interpretation: CHEST CTA for PULMONARY ARTERIES CT DOSE: 534.63 mGycm HISTORY: Atypical Chest Pain, eval for PE TECHNIQUE: Multiaxial CT images of the chest were performed following the intravenous administration of contrast to evaluate the pulmonary arteries. Maximal intensity projection images were also obtained. A dose lowering technique was utilized adhering to the principles of ALARA. COMPARISON STUDY: Chest CTA 06/04/2019. FINDINGS: There are few thyroid nodules with the largest on the right measuring 2 cm. Normal caliber thoracic aorta with no evidence for dissection. Trace left pleural effusion. The heart is borderline enlarged. No filling defects within the pulmonary arteries to suggest pulmonary embolus. Limited views of the upper abdomen demonstrate a normal liver and spleen. No change in the axillary, mediastinal, left hilar lymphadenopathy. Dominant right axillary lymph node measures 2.5 x 1.4 cm. This is nonspecific but raise the possibility of a lymphoproliferative disorder. Normal esophagus. No suspicious lytic are blastic osseous lesions. Interval development of dense consolidation involving the majority of the left lower lobe. There are associated air bronchograms. Therefore, this favors a pneumonia. No pneumothorax. The central airways are patent. The right lung is clear. IMPRESSION: 1. No evidence for pulmonary embolus. 2. Dense consolidation within the left lower lobe which is new from the prior study. This favors a pneumonia. Recommend one month chest x-ray follow-up to ensure complete resolution and exclude the less likely possibility of underlying pulmonary lesion. 3. No significant change in the axillary, mediastinal, left hilar lymphadenopathy. This is nonspecific but could represent a lymphoproliferative disorder. 4. Trace left pleural effusion. 5. Multiple thyroid nodules with the largest on the right measuring 2 cm. These were described on a prior thyroid ultrasound. ACT 112: Negative or not required by law. Electronically signed by: Isaiah Romero M.D. 11/29/2019 12:52 PM ECG Data Attestation: I personally reviewed and interpreted this ECG as follows: Indication: + SOB/dyspnea Rate (beats per minute): 102 Rhythm: + sinus tachycardia ECG Intervals/blocks: + Normal QT-c (409) ECG [place]: + Normal ECG ST segments: no ST depression and no ST elevation Blood Pressure Blood Pressure Findings: Elevated blood pressure Blood Pressure Disposition: Referred to patients primary care provider MILA Narrative This is a 64-year-old female who presents emergency department complaining of left-sided chest and back pain. Because the patient is coughing up blood she was sent for CAT scan of the chest. This shows a large pneumonia. The patient also has an elevation in her white blood cell count. Her curb 65 score is 2. Based on this I did discuss the case with the hospitalist service who did agree to admit the patient. Blood cultures were obtained and the patient was started on IV Zosyn as well as Levaquin. Patient was in agreement with the treatment plan. Impression & Plan Pneumonia Discharge Plan Visit Data Chief Complaint: Cough Stated Complaint: COUGHING,BLOODY MUCUS,RT CHEST PAIN ED Provider: Daniel Vela Discharge Problem: Pneumonia Patient Disposition: Being Evaluated by Hospitalist Forms Stand Alone Forms: [facility] Prescriptions Prescriptions: No Action Suprep Bowel Prep Kit 17.5-3.13-1.6 gram recon soln 177 ml PO DAILY Qty: 354 RF: 0 Trulicity 1.5 mg/0.5 mL pen injector 1.5 mg subcut WK Qty: 2 RF: 5 ergocalciferol (vitamin D2) 50,000 unit capsule 50,000 unit PO WK Qty: 13 RF: 0 peg 3350-electrolytes [Golytely] 236-22.74-6.74 -5.86 gram recon soln 240 ml PO .COMPLEX Qty: 4000 RF: 0 hydralazine 50 mg tablet 50 mg PO BID Qty: 60 RF: 5 ibuprofen 200 mg tablet 400 mg PO BID PRN (Reason: Pain) RF: 0 tobramycin 0.3 % drops 1 drops OP Q4H Qty: 5 RF: 1 erythromycin 5 mg/gram (0.5 %) ointment 1.25 cm OP BID Qty: 3.5 RF: 0 benzonatate [Tessalon Perles] 100 mg capsule 100 mg PO TID PRN (Reason: cough) Qty: 30 RF: 0 atorvastatin 10 mg tablet 10 mg PO DAILY RF: 0 metformin 500 mg tablet extended release 24 hr 1,000 mg PO AMPM RF: 0 cholecalciferol (vitamin D3) [Vitamin D3] 2,000 unit capsule 2,000 units PO 6XWK RF: 0 triamterene-hydrochlorothiazid [Dyazide] 37.5-25 mg capsule 1 cap PO DAILY RF: 0 losartan [Cozaar] 100 mg tablet 100 mg PO DAILY RF: 0 cyclobenzaprine 10 mg tablet 10 mg PO TID PRN (Reason: muscle spasm) Qty: 15 RF: 0 oxycodone-acetaminophen [Percocet] 5-325 mg tablet 1 tab PO Q4H PRN (Reason: pain) Qty: 15 RF: 0 Referrals Referrals: Rashel Baker MD [Primary Care Provider] - Discharge Problem: Pneumonia Qualifiers: Pneumonia type: due to unspecified organism Laterality: left Lung location: lower lobe of lung Qualified Code(s): J18.9 - Pneumonia, unspecified organism The scribe's documentation has been prepared under my direction and personally reviewed by me in its entirety. I confirm that the note above accurately reflects all work, treatment, procedures, and medical decision making performed by me.
--- NOTE | 2019-11-29 15:35 | Electrocardiogram Report ---
Test Reason : Blood Pressure : / mmHG Vent. Rate : 102 BPM Atrial Rate : 102 BPM P-R Int : 150 ms QRS Dur : 092 ms QT Int : 314 ms P-R-T Axes : 041 000 063 degrees QTc Int : 409 ms Sinus tachycardia Possible Left atrial enlargement Borderline ECG When compared with ECG of 04-JUN-2019 17:46, No significant change was found Confirmed by Alan Huddleston ([id number]) on 11/29/2019 3:34:40 PM Referred By: REFERRED SELF Confirmed By:Alan Huddleston
--- NOTE | 2019-11-29 16:01 | History & Physical Report ---
Date of Service November 29, 2019 Assessment & Plan (1) Sepsis associated hypotension: Admit to PCU on telemetry for sepsis and pneumonia. Vital signs every 4 hours. Continue Zosyn and Levaquin, started in the ER for pneumonia and sepsis. Duo nebs every 4 hours scheduled and as needed. Robitussin 10 mL p.o. every 6 hours as needed for cough Solu-Medrol 40 mg IV twice daily and taper down DVT prophylaxis heparin 5000 units subcu every 8 hours. Full code Present on Admission?: Yes (2) Pneumonia: As discussed above (3) Acute exacerbation of chronic low back pain: Continue home medicine with Percocet 1 tablet p.o. every 4 hours as needed Present on Admission?: Yes (4) Hypertension: Continue home medicine: Losartan 100 mg p.o. daily, triamterene hydrochlorothiazide 1 cap p.o. daily Present on Admission?: Yes (5) CLL (chronic lymphocytic leukemia): Stable at this point continue observing and monitoring lymphocytes. Present on Admission?: Yes (6) Diabetes mellitus type 2, uncontrolled: Blood sugar was elevated in the emergency room most likely due to administration of steroids IV. A1c pending. Hold metformin while patient in the hospital due to possible hypoglycemia and kidney injury if exposed to radiological studies with IV contrast. Instead use sliding scale insulin and Accu-Cheks before meals and at bedtime. Glycemic control per pharmacy Present on Admission?: Yes (7) Diabetic nephropathy associated with type 2 diabetes mellitus: As discussed above Present on Admission?: Yes (8) Dyslipidemia: Lipid panel pending. Continue atorvastatin 10 mg p.o. daily. Present on Admission?: Yes (9) Fatigue: Most likely due to acute illness and overall poor poor health. Continue monitoring. Physical therapy would be helpful once when patient is clinically improved Present on Admission?: Yes (10) Morbid obesity: Long-term plan is to lose weight with proper dieting and exercises and lifestyle changing. Present on Admission?: Yes History of Present Illness Chief Complaint: Cough and generalized malaise Primary Care Provider: Rashel Baker MD 64 years old female with past medical history of hypertension, chronic lymphocytic leukemia, diabetes mellitus type 2, diabetic nephropathy associated with diabetes mellitus type 2, dyslipidemia, not immune hepatitis B virus, morbid obesity, degenerative joint disease, CLL presents with a cough for 10 days and generalized malaise. Patient states that she saw her PCP who recommended her to take albuterol inhaler and Tessalon Perles and to treat acute exacerbation of COPD. Patient now presented with a fever and nonproductive cough. Labs are reviewed: WBC is 21.81, hemoglobin 11.3, hematocrit 35, platelets 165, sodium 132, potassium 3.7, BUN 23, creatinine 1.7, glucose 245, AST 18 ALT 16, procalcitonin 6.69. Negative for influenza A and influenza B. CT of the chest: No evidence of pulmonary embolus. Dense consolidation within the left lower lobe which is new from the prior study. This favors a pneumonia. Recommended to repeat x-rays to complete resolution. Trace left pleural effusion. Multiple thyroid nodules with the largest on the right side measuring 2 cm. This was prior seen and a thyroid ultrasound. Blood culture pending. Decision was made to admit patient to PCU on telemetry for sepsis and pneumonia. Allergies Allergy/AdvReac Type Severity Reaction Status Date / Time lisinopril AdvReac Unknown cough Verified 11/06/19 11:33 pregabalin AdvReac Unknown sadness, Verified 11/06/19 11:33 crying Home Medications Home Medications Medication Instructions Recorded Confirmed Type atorvastatin 10 mg PO DAILY 01/24/19 11/29/19 History cholecalciferol (vitamin D3) 2,000 units PO 6XWK 01/24/19 11/29/19 History [Vitamin D3] metformin 1,000 mg PO AMPM 01/24/19 11/29/19 History losartan [Cozaar] 100 mg PO DAILY 06/04/19 11/29/19 History triamterene-hydrochlorothiazid 1 cap PO DAILY 06/04/19 11/29/19 History [Dyazide] sodium,potassium,mag sulfates 17.5 177 ml PO DAILY #354 ml 08/31/19 11/29/19 Rx gram-3.13 gram-1.6 gram oral soln erythromycin 5 mg/gram (0.5 %) eye 1.25 cm OP BID #3.5 gm 09/18/19 11/29/19 Rx ointment hydralazine 50 mg tablet 50 mg PO BID #60 tab 09/21/19 11/29/19 Rx ibuprofen 200 mg tablet 400 mg PO BID PRN tab 09/21/19 11/29/19 History tobramycin 0.3 % eye drops 1 drops OP Q4H #5 ml 09/21/19 11/29/19 Rx Trulicity 1.5 mg/0.5 mL 1.5 mg SUBCUT WK #2 ml NS 10/08/19 11/29/19 Rx subcutaneous pen injector ergocalciferol (vitamin D2) 50,000 50,000 unit PO WK #13 cap 10/26/19 11/29/19 Rx unit capsule benzonatate 100 mg capsule 100 mg PO TID PRN #30 cap 11/06/19 11/29/19 Rx cyclobenzaprine 10 mg PO TID PRN #15 tab 11/23/19 11/29/19 Rx oxycodone-acetaminophen [Percocet] 1 tab PO Q4H PRN #15 tab 11/23/19 11/29/19 Rx peg 3350-electrolytes 236 240 ml PO .COMPLEX #4000 ml 11/23/19 11/29/19 Rx gram-22.74 gram-6.74 gram-5.86 gram solution Past Med/Surg History Medical History Cellulitis (Resolved) H/O pityriasis rosea HTN (hypertension) 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) Joint pain, knee (Acute) Leg edema, right (Acute) Leg swelling (Acute) Low back pain (Acute) Morbid obesity (Acute) Multiple thyroid nodules (Acute) Not immune to hepatitis B virus (Acute) 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) Rosacea (Acute) Snoring (Acute) Systolic murmur (Acute) Thoracic back pain (Acute) Urinary frequency (Acute) Vitamin D deficiency disease (Acute) Surgical History H/O hernia repair (Acute 03/03/13) History of bilateral knee replacement Hx of section Hx of cholecystectomy 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 (Acute 03/03/13) Family History Father Heart disease Mother Hypertension Other Cancer Lung disease Social History Preferred Language: Tanzanian Communication Ability: Effective Mica Patcher Required: No Beliefs That Will Affect Care: None marital status: Current Living Situation: Spouse current occupational status: employed Other Information That Helps Us Care for You: No Feels Safe at Home: Yes Safety Concerns: Feels Safe At This Time Smoking Status: Never smoker Hx Alcohol Use: No Hx Substance Use: No Review of Systems Review of Systems: All systems reviewed & are unremarkable except as noted in HPI & below Physical Exam Constitutional: WD/WN, vitals as above well developed and + morbidly obese Eyes: PERRL, conjunctivae normal, anicteric sclerae ENMT: external ear and nose normal, oropharynx normal Neck: trachea midline, no thyromegaly Respiratory: + respiratory distress and + labored breathing Auscultation: + crackles and + wheezes Cardiovascular: RRR, no murmur, no edema Gastrointestinal (Abdomen): normal bowel sounds, soft, nontender, no hepatosplenomegaly Musculoskeletal: no cyanosis or clubbing, extremities motor strength 5/5 Skin: no rashes, warm and dry Neurologic: patellar DTR's 2+ bilat, sensation intact Psychiatric: A+Ox3, euthymic affect Lymphatic: no cervical or axillary lymphadenopathy Results & Data Vital Signs (Past 12 Hours) Vital Signs Temp Pulse Pulse Resp BP Pulse Ox 11/29/19 13:15 97 H 21 94 11/29/19 13:14 96 H 24 137/68 88 L 11/29/19 13:00 97 H 20 11/29/19 12:45 102 H 21 11/29/19 12:42 102 H 26 H 11/29/19 12:02 108 H 26 H 100 11/29/19 12:01 109 H 28 H 130/71 100 11/29/19 12:00 108 H 31 H 99 11/29/19 11:45 107 H 27 H 99 11/29/19 11:39 107 H 18 99 11/29/19 11:32 106 H 19 177/91 H 98 11/29/19 11:06 67 20 91 11/29/19 10:32 98 11/29/19 09:55 37.7 C H 97 H 20 164/88 H 92 Code Status & VTE Plan Code Status Full code VTE Prophylaxis Plan VTE Prophylaxis will be ordered: Yes PG Care Time/CCT Total # of Minutes Spent Total Time Spent with Patient: Total time spent is greater than 50% in coordination of care (as documented) at patient's floor/unit and/or counseling patient: (1) Pneumonia Laterality: left Lung location: lower lobe of lung Pneumonia type: due to unspecified organism Qualified Code(s): J18.9 - Pneumonia, unspecified organism
[2019-11-29] MEDS ORDERED: GUAIFENESIN/DEXTROM SYRUP 200MG/20MG 10ML UDC PO PRN (18:21)
[2019-11-29] MEDS ORDERED: HYDROmorphone INJ 0.5 MG/0.5 ML SYR IV PRN (18:21)
[2019-11-29] MEDS ORDERED: BENZONATATE 100 MG CAPSULE PO PRN (18:21)
[2019-11-29] MEDS ORDERED: POLYETHYLENE (MIRALAX) 17 GM PACK PO PRN (18:21)
[2019-11-29] MEDS ORDERED: ALUMINUM/MAGNESIUM SUSP 30 ML UDC PO PRN (18:21)
[2019-11-29] MEDS ORDERED: OXYCODONE/ACETAMINOPHEN 5mg/325mg TAB PO PRN (18:21)
[2019-11-29] MEDS ORDERED: MAGNESIUM HYDROXIDE SUSP 30 ML UDC PO PRN (18:21)
[2019-11-29] MEDS ORDERED: ACETAMINOPHEN 325 MG TAB PO PRN (18:21)
[2019-11-29] MEDS ORDERED: CARBOHYDRATES FOR HYPOGLYCEMIA PO PRN (18:39)
[2019-11-29] MEDS ORDERED: GLUCAGON FOR INJ 1 MG VIAL SQ PRN (18:39)
[2019-11-29] MEDS ORDERED: GLUCOSE 40% GEL 15 GM TUBE PO PRN (18:39)
[2019-11-29] MEDS ORDERED: GLUCOSE 10 TABS/TUBE PO PRN (18:39)
[2019-11-29] MEDS ORDERED: DEXTROSE 50% 50 ML SYRINGE IV PRN (18:39)
[2019-11-29] MEDS ORDERED: PHARMACY GLYCEMIC MGMT CONSULT PRN (18:51)
[2019-11-29] MEDS ORDERED: CYCLOBENZAPRINE HCL 10 MG TAB PO PRN (19:00)
[2019-11-29] MEDS ORDERED: NSS + 20MEQ KCL 20 MEQ/1,000 ML BAG IV SCH (19:00)
[2019-11-29 19:13] LABS: Thyroid Stimulating Hormone 0.893 uIu/ml (0.300-4.500)
[2019-11-29] MEDS: PIPERACILLIN/TAZOBACTAM 4.5 GM in DEXTROSE 5% 100 ML IV SCH (19:39)
[2019-11-29] MEDS: ATORVASTATIN 10 MG TAB PO SCH (19:41)
[2019-11-29] MEDS: ALBUT/IPRATROP 3MG/0.5MG NEB 3 ML VIAL NEB SCH ×2 (20:09→23:13)
[2019-11-29] MEDS: TOBRAMYCIN SULF 0.3% OP SOLN 5 ML BTL OP SCH (20:19)
[2019-11-29] MEDS: INSULIN ASPART 100 UNITS/ML 3 ML PEN SC SCH (20:37)
[2019-11-29] MEDS: methylPREDNISolone 40 MG in SYRINGE 0 ML IV SCH (20:45)
[2019-11-29] MEDS: HydrALAZINE TAB 50 MG TAB PO SCH (20:45)
[2019-11-29] MEDS ORDERED: ERYTHROMYCIN OP OINT 5 MG/GM 3.5 GM TUBE OP SCH (21:00)
[2019-11-29] MEDS ORDERED: INSULIN ASPART 100 UNITS/ML 3 ML PEN SC SCH (21:00)
[2019-11-29] MEDS ORDERED: INSULIN GLARGINE SOLOSTAR 100 UNITS/ML 3 ML PEN SC ONE (21:00)
[2019-11-29] MEDS: HEPARIN SOD 5,000 UNIT/0.5 ML VIAL SQ SCH (22:13)
[2019-11-30] MEDS: INSULIN ASPART 100 UNITS/ML 3 ML PEN SC SCH ×6 (00:06→21:23)
[2019-11-30] MEDS: ALBUT/IPRATROP 3MG/0.5MG NEB 3 ML VIAL NEB SCH ×2 (02:20→06:59)
[2019-11-30] MEDS: PIPERACILLIN/TAZOBACTAM 4.5 GM in DEXTROSE 5% 100 ML IV SCH (04:00)
[2019-11-30 05:59] LABS: Basophils # (auto) 0.01 K/uL (0-0.2); Basophils % (auto) 0.1 %; Hematocrit (blood only) 28.9 % (37-47); Hemoglobin 9.3 g/dL (12.0-16.0); Immature Granulocytes # (auto) 0.05 K/uL (0.00-0.02); Immature Granulocytes % (auto) 0.3 %; Lymphocytes # (auto) 4.12 K/uL (1.2-3.4); Lymphocytes % (auto) 23.4 %; Mean Corpuscular Hgb Conc 32.2 g/dL (32-36); Mean Corpuscular Volume 83.8 fL (80-100); Mean Platelet Volume 10.7 fL (7.4-10.4); Monocytes # (auto) 0.38 K/uL (0.11-0.59); Monocytes % (auto) 2.2 %; Neutrophils # (auto) 13.03 K/uL (1.4-6.5); Platelet Count 131 K/uL (130-400); RDW Coefficient of Variation 16.2 % (11.5-14.5); RDW Standard Deviation 49.9 fL (36.4-46.3); Red Blood Count 3.45 M/uL (4.2-5.4); White Blood Count 17.59 K/uL (4.8-10.8)
[2019-11-30] MEDS: HEPARIN SOD 5,000 UNIT/0.5 ML VIAL SQ SCH ×3 (06:10→21:25)
[2019-11-30 06:17] LABS: Estimated Average Glucose 140 mg/dl; Hemoglobin A1C 6.5 % (4.5-5.6)
[2019-11-30 06:34] LABS: BUN Creatinine Ratio 19.8 (10-20); Calcium 8.3 mg/dl (8.5-10.1); Creatinine Clr Calc Pharmacy 35.3 ml/min; Est GFR (African American) 32.8; Est GFR (Non-African American) 28.3; Potassium 3.1 mmol/L (3.5-5.1)
[2019-11-30 06:38] LABS: Albumin Globulin Ratio 0.4 (0.9-2); Bilirubin,Total 0.3 mg/dl (0.2-1); Globulin 4.6 gm/dl (2.5-4.0); Total Protein 6.6 gm/dl (6.4-8.2)
[2019-11-30 06:49] LABS: Estimated Average Glucose 143 mg/dl; Hemoglobin A1C 6.6 % (4.5-5.6)
[2019-11-30] MEDS: HydrALAZINE TAB 50 MG TAB PO SCH ×2 (07:58→08:15)
[2019-11-30] MEDS: methylPREDNISolone 40 MG in SYRINGE 0 ML IV SCH (07:58)
[2019-11-30] MEDS: CHOLECALCIFEROL 1,000 UNITS TAB PO SCH (07:59)
[2019-11-30] MEDS: LOSARTAN POTASSIUM 50 MG TAB PO SCH (07:59)
[2019-11-30] MEDS: TRIAMTERENE/HCTZ 37.5/25MG CAP PO SCH (08:00)
[2019-11-30] MEDS: ATORVASTATIN 10 MG TAB PO SCH (08:00)
[2019-11-30] MEDS ORDERED: INSULIN GLARGINE SOLOSTAR 100 UNITS/ML 3 ML PEN SC SCH (09:00)
[2019-11-30] MEDS ORDERED: Nursing to Pharmacy Communication ONE (10:08)
[2019-11-30] MEDS: NSS + 20MEQ KCL 20 MEQ/1,000 ML BAG IV SCH (10:54)
--- NOTE | 2019-11-30 13:27 | Pharmacy Report ---
Glycemic Control Consultation - Date of Service November 30, 2019 - Scope Scope: Glycemic Pharmacist consulted by Dr Aguilar on 11/29/2019 for glycemic control and to write orders per [facility] inpatient glycemic control protocol - Objective Weight: 107 kg Accjenniferecks BSG (last 24hrs): 11/29/19 11/29/19 11/30/19 18:22 20:08 00:01 Glucose POC Glucose 245 H 303 H* 310 H* 11/30/19 11/30/19 11/30/19 04:08 05:27 07:46 Glucose 203 H POC Glucose 257 H 169 H 11/30/19 11:27 Glucose POC Glucose 183 H Laboratory Data (last 24hrs): 11/30/19 05:27 Potassium 3.1 L Carbon Dioxide 24 Anion Gap 7.0 Creatinine 1.85 H Est Cr Clr Drug Dosing 35.3 HbA1c: Hemoglobin A1c 6.6 % (4.5-5.6) H 11/30/19 05:27 - Recent Pertinent Medications Outpatient Anti-diabetic Regimen: * metformin 1 gm PO BID plus Trulicity 1.5 mg SQ weekly The patient is currently receiving: * Basal insulin: Lantus 30 units x 1 * Correctional Insulin: Novolog Correction per scale ACHS Goal Range: Low 110 mg/dL - High 140 mg/dL Correction Factor: 15 mg/dL/unit * Prandial insulin: Per carb ratio of 1 unit per 5 grams CHO consumed * Oral Agents: Risk Factors for Insulin Resistance: * Steroids: Solu-Medrol 60 mg IV x1 then 40 mg IV BID... changed to 20 mg IV BID starting tonight * Infection: Pneumonia on Levaquin * Diet: T2DM - Assessment & Plan Assessment & Plan: ASSESSMENT: * Ms Proctor is a 64 y/o F with PMH of well controlled T2DM on metformin and Trulicity. Patient's blood sugar was reasonable controlled prior to administration of Solu-Medrol. * Pt is maintained on oral antidiabetic agents as an outpatient * Oral agents are not recommended for inpatient use d/t drug interactions, changing PO intake, and difficulty titrating for acute hyper/hypoglycemia. ADA recommends re-initiating outpatient oral agents 1-2 days prior to discharge if/when appropriate if they were held on admission. * Will hold oral agents for admission and utilize SQ basal bolus insulin regimen which is the recommended regimen for inpatient glycemic control. * Will initiate weight based insulin dosing for insulin alcides patient and titrate based on BSG trends. * Patient given Lantus 30 units (weight-based stress of 3 half dose) plus received 20 units of Novolog overnight (BSGs 310-257 mg/dL overnight). Fasting was 169 mg/dL. Additional 30 units given this morning. No further doses until 12/01/2019 morning. * Novolog started at weight-based stress of 3. Continue. PLAN FOR INPATIENT GLYCEMIC CONTROL: * Holding outpatient oral diabetes medications * Basal insulin * Lantus 30 units SQ x 1 * Bolus insulin * NovoLog per scale ACHS or Q6hrs while NPO * Goal Range: Low 110 mg/dL - High 140 mg/dL * Correction Factor: 15 mg/dL/unit * Nutritional / Prandial insulin per carb ratio of 1 unit per 5 grams CHO consumed * Please note that the plan above was derived based on current level of insulin resistance and hospital stress. These recommendations are appropriate for inpatient admission only. Plan of care upon discharge will need to be reassessed to avoid potential outpatient hypo/hyperglycemia. Thank you.
[2019-11-30] MEDS: TOBRAMYCIN SULF 0.3% OP SOLN 5 ML BTL OP SCH (16:37)
--- NOTE | 2019-11-30 17:38 | Hospitalist Progress Note ---
Date of Service November 30, 2019 Assessment & Plan (1) Sepsis associated hypotension: LLL PNA noted on CXR Started on Zosyn and Levaquin in the ED, will d/c zosyn today and monitor on levaquin Nebs to PRN Robitussin 10 mL p.o. every 6 hours as needed for cough Solu-Medrol 40 mg IV twice daily in ED, however this is making pt jittery and increasing her BS--taper to 20mg BID on 11/30 and monitor Flu neg Blood cx pending WBC improving (2) Pneumonia: As discussed above (3) Hypokalemia: Replace with IVF and monitor (4) Acute exacerbation of chronic low back pain: Continue home medicine with Percocet 1 tablet p.o. every 4 hours as needed (5) Hypertension: Continue home medicine: Losartan 100 mg p.o. daily, triamterene hydrochlorothiazide 1 cap p.o. daily (6) CLL (chronic lymphocytic leukemia): Stable at this point continue observing and monitoring lymphocytes. (7) Diabetes mellitus type 2, uncontrolled: Blood sugar was elevated in the emergency room most likely due to administration of steroids IV. A1c 6.6 Hold metformin while patient in the hospital due to possible hypoglycemia and kidney injury if exposed to radiological studies with IV contrast. Instead use sliding scale insulin and Accu-Cheks before meals and at bedtime. (8) Diabetic nephropathy associated with type 2 diabetes mellitus: As discussed above (9) Dyslipidemia: Lipid panel with LDL 50 and HDL 12 Continue atorvastatin 10 mg p.o. daily. (10) Fatigue: Most likely due to acute illness and overall poor health. Continue monitoring. Physical therapy would be helpful once when patient is clinically improved (11) Morbid obesity: Long-term plan is to lose weight with proper dieting and exercises and lifestyle changing. (12) DVT prophylaxis: DVT prophylaxis heparin 5000 units subcu every 8 hours. Full code Subjective Pt does feel improved but still with cough and SOB. She states that she has had some nosebleeds with this and occasionally coughing up sputum that is blood tinged. Some slight rib pain from coughing spells, but no hope chest pain. Pt denies fever, abd pain, n/v/c/d, LE pain or swelling. Tolerating PO without issue. Pt denies prior hx of murmur. Review of Systems Review of Systems: Pertinent positives and negatives reviewed in HPI--all others negative Physical Exam Constitutional: WD/WN, vitals as above Eyes: normal visual whaley by confrontation and + anicteric sclerae Neck: normal visual inspection and trachea midline Respiratory: normal respiratory effort; no respiratory distress Auscultation: + crackles (L base); no wheezes Cardiovascular: Rate/Rhythm: regular rate and regular rhythm Heart Sounds: + murmur Gastrointestinal (Abdomen): Inspection/Auscultation: abdomen not distended Percussion/Palpation: abdomen soft; abdomen nontender Musculoskeletal: Head/Neck/Chest: normocephalic and head atraumatic neg ative for edema, peripheral pulses intact Skin: no rashes, warm and dry Neurologic: awake; not confused Speech / Cognition: normal speech Psychiatric: A+Ox3, euthymic affect Results & Data Vital Signs (Past 12 Hours) Vital Signs Temp Pulse Pulse Pulse Pulse Resp BP 11/30/19 16:02 36.4 C L 70 18 169/67 H 11/30/19 12:29 36.5 C 75 20 153/78 H 11/30/19 11:47 36.3 C L 72 19 170/68 H 11/30/19 08:02 73 11/30/19 07:53 36.5 C 66 19 157/86 H 11/30/19 07:02 87 20 Pulse Ox 11/30/19 16:02 96 11/30/19 12:29 97 11/30/19 11:47 97 11/30/19 08:02 11/30/19 07:53 99 11/30/19 07:02 97 PG Care Time/CCT Total # of Minutes Spent Total Time Spent with Patient: Total time spent is greater than 50% in coordination of care (as documented) at patient's floor/unit and/or counseling patient: (1) Pneumonia Laterality: left Lung location: lower lobe of lung Pneumonia type: due to unspecified organism Qualified Code(s): J18.9 - Pneumonia, unspecified organism
[2019-11-30] MEDS: methylPREDNISolone 20 MG in SYRINGE 0 ML IV SCH (21:23)
[2019-12-01 00:09] VITALS: O2SAT 95
[2019-12-01 05:57] LABS: Hematocrit (blood only) 33.6 % (37-47); Hemoglobin 10.5 g/dL (12.0-16.0); Mean Corpuscular Hemoglobin 26.4 pg (25-34); Mean Corpuscular Hgb Conc 31.3 g/dL (32-36); Mean Corpuscular Volume 84.6 fL (80-100); Mean Platelet Volume 10.5 fL (7.4-10.4); Platelet Count 171 K/uL (130-400); RDW Coefficient of Variation 16.2 % (11.5-14.5); RDW Standard Deviation 50.1 fL (36.4-46.3); Red Blood Count 3.97 M/uL (4.2-5.4); White Blood Count 21.77 K/uL (4.8-10.8)
[2019-12-01] MEDS: NSS + 20MEQ KCL 20 MEQ/1,000 ML BAG IV SCH (06:08)
[2019-12-01] MEDS: HEPARIN SOD 5,000 UNIT/0.5 ML VIAL SQ SCH ×2 (06:10→13:18)
[2019-12-01 06:40] LABS: BUN Creatinine Ratio 30.4 (10-20); Calcium 8.8 mg/dl (8.5-10.1); Creatinine Clr Calc Pharmacy 41.4 ml/min; Est GFR (African American) 39.7; Est GFR (Non-African American) 34.2
[2019-12-01 06:57] LABS: Albumin Globulin Ratio 0.4 (0.9-2); Bilirubin,Total 0.4 mg/dl (0.2-1); Globulin 4.9 gm/dl (2.5-4.0); Total Protein 6.9 gm/dl (6.4-8.2)
[2019-12-01 07:05] LABS: Basophils # (auto) 0.02 K/uL (0-0.2); Basophils % (auto) 0.1 %; Immature Granulocytes # (auto) 0.27 K/uL (0.00-0.02); Immature Granulocytes % (auto) 1.2 %; Lymphocytes # (auto) 7.12 K/uL (1.2-3.4); Lymphocytes % (auto) 32.7 %; Monocytes # (auto) 0.48 K/uL (0.11-0.59); Monocytes % (auto) 2.2 %; Neutrophils # (auto) 13.88 K/uL (1.4-6.5); Neutrophils % (auto) 63.8 %; Smudge Cells Present
[2019-12-01 07:30] VITALS: BP 159/91; TEMP 97.7
[2019-12-01] MEDS: methylPREDNISolone 20 MG in SYRINGE 0 ML IV SCH (07:38)
[2019-12-01] MEDS: CHOLECALCIFEROL 1,000 UNITS TAB PO SCH (07:38)
[2019-12-01] MEDS: ATORVASTATIN 10 MG TAB PO SCH (07:38)
[2019-12-01] MEDS: TRIAMTERENE/HCTZ 37.5/25MG CAP PO SCH (07:38)
[2019-12-01] MEDS: LOSARTAN POTASSIUM 50 MG TAB PO SCH (07:38)
[2019-12-01 08:15] LABS: Potassium 4.3 mmol/L (3.5-5.1)
[2019-12-01] MEDS: INSULIN ASPART 100 UNITS/ML 3 ML PEN SC SCH ×2 (08:58→13:17)
--- NOTE | 2019-12-01 11:39 | Discharge Summary ---
Date of Service December 01, 2019 Admission HPI Per Admitting Provider 64 years old female with past medical history of hypertension, chronic lymphocytic leukemia, diabetes mellitus type 2, diabetic nephropathy associated with diabetes mellitus type 2, dyslipidemia, not immune hepatitis B virus, morbid obesity, degenerative joint disease, CLL presents with a cough for 10 days and generalized malaise. Patient states that she saw her PCP who recommended her to take albuterol inhaler and Tessalon Perles and to treat acute exacerbation of COPD. Patient now presented with a fever and nonproductive cough. Labs are reviewed: WBC is 21.81, hemoglobin 11.3, hematocrit 35, platelets 165, sodium 132, potassium 3.7, BUN 23, creatinine 1.7, glucose 245, AST 18 ALT 16, procalcitonin 6.69. Negative for influenza A and influenza B. CT of the chest: No evidence of pulmonary embolus. Dense consolidation within the left lower lobe which is new from the prior study. This favors a pneumonia. Recommended to repeat x-rays to complete resolution. Trace left pleural effusion. Multiple thyroid nodules with the largest on the right side measuring 2 cm. This was prior seen and a thyroid ultrasound. Blood culture pending. Decision was made to admit patient to PCU on telemetry for sepsis and pneumonia. Principal Diagnosis Pt is feeling much improved. She is still coughing, but better. No further SOB at rest or with ambulation. She has been tolerating PO without issue. Pt denies fever, chest pain, abd pain, n/v/c/d, LE pain or swelling. 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 They also have custody of their 4 y/o granddaughter. 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 Discharge Exam Constitutional WD/WN, vitals as above Eyes normal visual whaley by confrontation and + anicteric sclerae Neck normal visual inspection and trachea midline Respiratory normal respiratory effort; no respiratory distress Auscultation: + crackles (L base--scant); no diminished lung sounds and no wheezes Cardiovascular Rate/Rhythm: regular rate and regular rhythm Heart Sounds: + murmur Gastrointestinal (Abdomen) Inspection/Auscultation: abdomen not distended Percussion/Palpation: abdomen soft; abdomen nontender Musculoskeletal Head/Neck/Chest: normocephalic and head atraumatic Skin no rashes, warm and dry Neurologic awake; not confused Speech / Cognition: normal speech Psychiatric A+Ox3, euthymic affect Discharge Data Allergies Allergy/AdvReac Type Severity Reaction Status Date / Time lisinopril AdvReac Unknown cough Verified 11/06/19 11:33 pregabalin AdvReac Unknown sadness, Verified 11/06/19 11:33 crying Consultations 11/29/19 13:03 ED Decision to Admit Stat Ordered Studies 11/29/19 10:33 CT angio chest PE protocol Stat Hospital Course (1) Sepsis associated hypotension: LLL PNA noted on CXR Started on Zosyn and Levaquin in the ED, discharge on levaquin was initially on Solu-Medrol 40 mg IV, however this was making pt jittery and increasing her BS Tapered the following day and pt continued to improve Will ideally avoid further steroids due to BS, but did give pt a script to fill if she felt her breathing was becoming tight Flu neg Blood cx neg on prelim WBC improving, but still elevated in the setting of steroid use (2) ARF (acute renal failure): in the setting of dehydration Cr on admission was 1.8, 1.5 on d/c s/p IVF Metformin management as above PRP on 12/03 (3) Pneumonia: As discussed above (4) Hypokalemia: Replace with IVF and resolved (5) Acute exacerbation of chronic low back pain: Continue home medicine with Percocet 1 tablet p.o. every 4 hours as needed (6) Hypertension: Continue home medicine: Losartan 100 mg p.o. daily, triamterene hydrochlorothiazide 1 cap p.o. daily (7) CLL (chronic lymphocytic leukemia): Stable at this point continue observing and monitoring lymphocytes. (8) Diabetes mellitus type 2, uncontrolled: Blood sugar was elevated in the emergency room most likely due to administration of steroids IV. A1c 6.6 Metformin held due to contrast and cr Cr is almost WNL Advised to have PRP on 12/03 Take trulicity on 12/01 at d/c (instead of usual Friday dosing) and can resume metformin on 12/03 if cr is WNL (9) Diabetic nephropathy associated with type 2 diabetes mellitus: As discussed above (10) Dyslipidemia: Lipid panel with LDL 50 and HDL 12 Continue atorvastatin 10 mg p.o. daily. (11) Morbid obesity: Long-term plan is to lose weight with proper dieting and exercises and lifestyle changing. (12) DVT prophylaxis: DVT prophylaxis heparin 5000 units subcu every 8 hours. Full code Total Time Total Time Spent Total Time Spent (In Minutes): >30 Total Time Includes: Examination of the Patient, Discharge Planning, Medication Reconciliation and Other Discharge Plan Discharge Items Patient Disposition: Home - Self-Care Reason For Visit: SEPSIS,PNA Discharge Diagnosis: Pneumonia Activity: Resume your previous activity Non-emergency contact: Primary Care Provider Call non-emergency contact if: you have any medication questions and your symptoms worsen Follow-up/Referrals: Rashel Baker MD [Primary Care Provider] - Diet: Carb Consistent or DM2 Addtl Attending Provider Instructions: You need to have labs checked on Friday to make sure your renal function continues to improve You will take your Trulicity tonight. You will hold your metformin until after you have your labs checked on Friday You should arrange to have a follow up with your PCP office on Friday or ay I am giving you a prescription for steroids if you feel that your breathing is getting tight again. You do not need to fill this unless you need them You should start taking a probiotic, especially while you are taking an antibiotic. The one I recommend for most patients is Jarrow EPS 5 billion. It is a mix of 8 different bacteria. You can find this product at [employer] in [place]. You should start with 1 a day and you should take it away from your antibiotic--30 minutes prior to taking the antibiotic is a good timing. If you begin to have diarrhea while you are on the antibiotic, you should take an additional probiotic. The goal is to have 1 solid bowel movement a day. Pending Studies at Discharge: Yes Studies:: Final blood cx Stand-Alone Forms: [facility] [employer], Smoking Cessation Medications and DC Order Prescriptions: New levofloxacin [Levaquin] 750 mg tablet 750 mg PO .qod 5 Days Qty: 5 RF: 0 prednisone 5 mg tablets,dose pack 10 mg PO DAILY Qty: 21 RF: 0 Continued Suprep Bowel Prep Kit 17.5-3.13-1.6 gram recon soln 177 ml PO DAILY Qty: 354 RF: 0 Trulicity 1.5 mg/0.5 mL pen injector 1.5 mg subcut WK Qty: 2 RF: 5 ergocalciferol (vitamin D2) 50,000 unit capsule 50,000 unit PO WK Qty: 13 RF: 0 peg 3350-electrolytes [Golytely] 236-22.74-6.74 -5.86 gram recon soln 240 ml PO .COMPLEX Qty: 4000 RF: 0 hydralazine 50 mg tablet 50 mg PO BID Qty: 60 RF: 5 ibuprofen 200 mg tablet 400 mg PO BID PRN (Reason: Pain) RF: 0 tobramycin 0.3 % drops 1 drops OP Q4H Qty: 5 RF: 1 erythromycin 5 mg/gram (0.5 %) ointment 1.25 cm OP BID Qty: 3.5 RF: 0 benzonatate [Tessalon Perles] 100 mg capsule 100 mg PO TID PRN (Reason: cough) Qty: 30 RF: 0 atorvastatin 10 mg tablet 10 mg PO DAILY RF: 0 cholecalciferol (vitamin D3) [Vitamin D3] 2,000 unit capsule 2,000 units PO 6XWK RF: 0 triamterene-hydrochlorothiazid [Dyazide] 37.5-25 mg capsule 1 cap PO DAILY RF: 0 losartan [Cozaar] 100 mg tablet 100 mg PO DAILY RF: 0 metformin 500 mg tablet extended release 24 hr 1,000 mg PO AMPM Qty: 0 RF: 0 cyclobenzaprine 10 mg tablet 10 mg PO TID PRN (Reason: muscle spasm) Qty: 15 RF: 0 oxycodone-acetaminophen [Percocet] 5-325 mg tablet 1 tab PO Q4H PRN (Reason: pain) Qty: 15 RF: 0 Discharge Orders: Discharge Order (Routine); Ordered 12/01/19 Ordered By: Guillermina Hubbard Admission Data Admit Date/Time: 11/29/19 15:52 Attending Provider: Guillermina uHbbard Admit Provider: John Aguilar Primary Care Provider: Rashel Baker V. Other Providers: John Aguilar Other Interventions: Discharge Summary Assessment (RN) Last Done: 12/01/19 12:28 DC Date/Time DO NOT enter until pt leaves facility: 12/01/19 14:46
[2019-12-01 12:31] VITALS: PULSE 75
[2019-12-01] MEDS ORDERED: LEVOFLOXACIN/D5W 750 MG/150 ML BAG IV SCH (14:00)
[2019-12-01] MEDS ORDERED: LEVOFLOXACIN/D5W 500 MG/100 ML BAG IV SCH (14:00)
[2019-12-02] MEDS ORDERED: LEVOFLOXACIN/D5W 750 MG/150 ML BAG IV SCH (14:00)
[2019-12-05] MEDS ORDERED: ERGOCALCIFEROL 50,000 UNITS CAP PO SCH (09:00)
== END 2019-12-01 14:46 | disposition home or self-care (01) | DRG 871 ==
LOC: ED 09:49 → SUATTDRO 15:52 → 2S 15:52 → 3N 11-30 12:24